=== PATIENT | male | born 1965 | race Hispanic/Latino ===

== ENCOUNTER 2016-12-27 11:32 | Day surgery (SDC) | payer MEDICARE ==
[2016-12-27] MEDS ORDERED: MYDRIACYL ONE (12:37)
[2016-12-27] MEDS ORDERED: IOPIDINE ONE (12:37)
[2016-12-27] MEDS ORDERED: NEOFRIN ONE (12:37)
[2016-12-27] MEDS ORDERED: IOPIDINE OS ONE (13:00)
[2016-12-27] MEDS ORDERED: NEOFRIN OS ONE (13:00)
[2016-12-27] MEDS ORDERED: MYDRIACYL OS ONE (13:00)
[2016-12-27 13:54] VITALS: BP 98/64
== END 2016-12-27 11:33 | disposition home or self-care (01) ==
LOC: OR 11:32
PROVIDERS: ATTEND Specialist
DX: H26.492 Other secondary cataract, left eye (principal)